=== PATIENT | male | born 1960 | race Caucasian/White ===

== ENCOUNTER → 2017-07-28 12:03 | Outpatient (CLI) | payer OTHER, SELFPAY ==
[2017-07-28 13:44] LABS: Hemoglobin A1c 5.2 % (4.2-6.3)
[2017-07-28 13:54] LABS: ALB/GLOB Ratio 0.9 RATIO (0.9-2.4); AST(SGOT) 10 U/L (15-37); Alanine Aminotransfer ALT/SGPT 22 U/L (16-61); Albumin, Serum 3.1 g/dL (3.2-5.0); Alkaline Phosphatase 84 U/L (45-117); Anion Gap 8 (5-15); BUN 63 mg/dL (7-18); BUN/Creat Ratio 21.6 RATIO (10-20); Calcium,Total 7.9 mg/dL (8.5-10.1); Chloride 106 mmol/L (98-107); Cholesterol 129 mg/dL (200); Creatinine, Serum 2.91 mg/dL (0.70-1.30); EST Glomerular Filtration Rate 24 mL/min (>60); Est Glom Filt Rate - Afr Amer 29 mL/min (>60); Globulin 3.5 g/dL (2.2-4.2); Glucose 145 mg/dL (74-106); High Density Lipoprotein 38 mg/dL; Potassium 4.6 mmol/L (3.5-5.1); Protein, Total 6.6 g/dL (6.4-8.2); Sodium Level 140 mmol/L (136-145); Triglycerides 142 mg/dL; Very Low Density Lipoprotein 28 mg/dL (5-40)
== END ==
PROVIDERS: Family Provider Family Medicine; PCP Family Medicine; Visit Provider Family Medicine
DX: E11.8 Type 2 diabetes mellitus with unspecified complications (principal); Z79.4 Long term (current) use of insulin
CPT/HCPCS: 36415; 80053; 80061; 82043; 82570; 83036

== ENCOUNTER → 2017-09-29 16:33 | Outpatient (CLI) | payer OTHER, SELFPAY ==
[2017-09-29 18:12] LABS: Amphetamine Urine VISTA NEGATIVE (<1000 ng/mL); Barbiturate Urine VISTA NEGATIVE (< 200 ng/mL); Benzodiazepine Urine VISTA NEGATIVE (< 200 ng/mL); Cocaine Urine VISTA NEGATIVE (< 300 ng/mL); Ecstacy Urine VISTA NEGATIVE (< 500 ng/mL); Methadone Urine VISTA NEGATIVE (< 300 ng/mL); PCP Urine VISTA NEGATIVE (< 25 ng/mL); THC Urine VISTA NEGATIVE (< 50 ng/mL); Vista UDS pH Range 6
== END ==
PROVIDERS: Family Provider Family Medicine; PCP Family Medicine; Visit Provider Anesthesiology Pain Medicine
DX: S00-T88 Injury, poisoning and certain other consequences of external causes (principal); T23.399A Burn of third degree of multiple sites of unspecified wrist and hand, initial encounter; T24.7 Corrosion of third degree of lower limb, except ankle and foot; T23.7 Corrosion of third degree of wrist and hand; S22.49XA Multiple fractures of ribs, unspecified side, initial encounter for closed fracture; S72.009A Fracture of unspecified part of neck of unspecified femur, initial encounter for closed fracture; T21.7 Corrosion of third degree of trunk; T25.39 Burn of third degree of multiple sites of ankle and foot; T25.7 Corrosion of third degree of ankle and foot; T31 Burns classified according to extent of body surface involved; S32.411A Displaced fracture of anterior wall of right acetabulum, initial encounter for closed fracture; S72.009 Fracture of unspecified part of neck of unspecified femur; T21.31XA Burn of third degree of chest wall, initial encounter; T21.33XA Burn of third degree of upper back, initial encounter; T21.39XA Burn of third degree of other site of trunk, initial encounter; T22.30XA Burn of third degree of shoulder and upper limb, except wrist and hand, unspecified site, initial encounter; S72.051A Unspecified fracture of head of right femur, initial encounter for closed fracture
CPT/HCPCS: 80307

== ENCOUNTER → 2017-10-28 15:07 | Outpatient (CLI) | payer OTHER, MEDICARE, SELFPAY ==
--- NOTE | 2017-10-28 15:13 | RAD_ITS ---
STUDY: X-RAY - LUMBAR SPINE REASON FOR EXAM: Male, 57 years old. Back pain TECHNIQUE: 3 view(s) of the lumbar spine were obtained. COMPARISON: None FINDINGS: Alignment is normal. No compression fracture. Anterior L3-4 osteophytes. Lower lumbar facet disease. Pelvic clips. Chronic dystrophic changes of the right hip. Aortic calcifications. RAD/Lumbar Spine 2 or 3 Views IMPRESSION: No compression deformity. Normal alignment. Lower lumbar facet disease. Electronically Signed: Pierre Garcia MD at 23:27 EDT Tel , Service support ,
== END ==
PROVIDERS: Family Provider Family Medicine; PCP Family Medicine; Visit Provider Anesthesiology Pain Medicine
DX: S22.49XA Multiple fractures of ribs, unspecified side, initial encounter for closed fracture (principal); T21.31XA Burn of third degree of chest wall, initial encounter; T21.7 Corrosion of third degree of trunk; T21.33XA Burn of third degree of upper back, initial encounter; T21.39XA Burn of third degree of other site of trunk, initial encounter; T22.30XA Burn of third degree of shoulder and upper limb, except wrist and hand, unspecified site, initial encounter; S00-T88 Injury, poisoning and certain other consequences of external causes; S32.411A Displaced fracture of anterior wall of right acetabulum, initial encounter for closed fracture; S72.051A Unspecified fracture of head of right femur, initial encounter for closed fracture; T23.399A Burn of third degree of multiple sites of unspecified wrist and hand, initial encounter; T23.7 Corrosion of third degree of wrist and hand; T31 Burns classified according to extent of body surface involved
CPT/HCPCS: 72100

== ENCOUNTER 2018-02-14 14:50 | Emergency (ER) | payer OTHER, MEDICARE, SELFPAY ==
[2018-02-14 14:52] VITALS: BP 132/80; PULSE 94; RESP 24; TEMP 36.9; O2SAT 97; BMI 32.1
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
[2018-02-14 15:44] LABS: Absolute Lymphocyte Count 0.64 X10^3/ul (0.83-4.51); Absolute Neutrophil Count 5.7 X10^3/uL (2.0-7.7); Basophil# 0.03 X10^3/uL; Basophil% 0.4 % (0-1); Eosinophil# 0.07 X10^3/uL; Hematocrit 30.3 % (40-54); Hemoglobin 9.3 g/dl (13.0-16.5); Lymphocyte # 0.64 X10^3/ul (4.0); Lymphocyte % 8.9 % (19-41); Mean Corp Hgb Conc 30.7 g/gl (32-36); Mean Corpuscular Hgb 27.5 pg (27.0-32.0); Mean Corpuscular Volume 89.6 fL (80-94); Mean Platelet Vol. 10.5 fl (6.2-12.0); Monocyte# 0.75 X10^3/uL; Monocyte% 10.4 % (0-10); Neutrophil % 79.2 % (47-70); POSITIVE COUNT NO; POSITIVE DIFFERENTIAL NO; POSITIVE MORPHOLOGY NO; Platelet Count 157 K/mm3 (150-450); RBC Distribution Width CV 15.6 % (11.6-14.6); RBC Distribution Width SD 50.3 fl (35.1-43.9); Red Blood Count 3.38 M/mm3 (4.6-6.2); White Blood Count 7.2 K/mm3 (4.4-11.0)
[2018-02-14] MEDS: Morphine 4 MG/ML Syringe IV (15:45)
[2018-02-14 16:00] LABS: BUN 70 mg/dL (7-18); Creatinine, Serum 2.84 mg/dL (0.70-1.30); EST Glomerular Filtration Rate 25 mL/min (>60); Estimated Creatinine Clearance 30.56 ml/min; Glucose 126 mg/dL (74-106)
[2018-02-14 16:00] LABS: Bacteria 0 SEEN /hpf (None Seen); Mucous, Urine 0 SEEN /hpf (<or=2+); Squamous Epithelial Cells - UA 0 SEEN /hpf (0-5); White Blood Cells 0 SEEN /hpf (0-5)
[2018-02-14 16:01] LABS: ALB/GLOB Ratio 0.8 RATIO (0.9-2.4); AST(SGOT) 12 U/L (15-37); Alanine Aminotransfer ALT/SGPT 15 U/L (16-61); Albumin, Serum 3.3 g/dL (3.2-5.0); Alkaline Phosphatase 127 U/L (45-117); Anion Gap 14 (5-15); BUN/Creat Ratio 24.6 RATIO (10-20); Calcium,Total 7.4 mg/dL (8.5-10.1); Chloride 106 mmol/L (98-107); Est Glom Filt Rate - Afr Amer 30 mL/min (>60); Globulin 4.1 g/dL (2.2-4.2); Protein, Total 7.4 g/dL (6.4-8.2); Sodium Level 141 mmol/L (136-145)
[2018-02-14 16:04] LABS: Color, Urine Yellow (Yellow); Glucose, Dipstick 100 mg/dl (Normal); Ketone-Dipstick Negative (Negative); Leukocyte Esterase-Dipstick Negative /ul (Negative); Nitrite-Dipstick Negative (Negative); Occult Blood-Urine 10 /ul (Negative); Protein-Dipstick 500 mg/dl (Negative); Urine Bilirubin Dipstick Negative (Negative); Urine Clarity Clear (Clear); Urine Urobilinogen Normal (Normal)
[2018-02-14 16:13] LABS: Fine Granular Cast- Urine 0-5 SEEN /lpf (0-5); Red Blood Cells-Urine 0-5 SEEN /hpf (0-5)
[2018-02-14 16:15] LABS: BNP,B-Type NATRIURETIC PEPTIDE 541.3 pg/mL (0-100)
[2018-02-14] MEDS: Ondansetron 4 MG/2 ML Vial IV (17:51)
[2018-02-14 18:02] VITALS: BP 129/81; O2SAT 93
--- NOTE | 2018-02-14 18:13 | ED.DEP ---
ED Disposition - Plan for ED Patient: Disposition: Home or Assisted Living Chief Complaint: Edema Instructions: ED Hydrocele Type Not Specified Referrals: Atul Cruz MD [Primary Care Provider] -
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
[2018-02-14] MEDS: Furosemide 40 MG/4 ML Vial IV (18:29)
== END 2018-02-14 18:38 | disposition home or self-care (01) ==
PROVIDERS: Emergency Provider Emergency Medicine; Family Provider Family Medicine; PCP Family Medicine
DX: N50.812 Left testicular pain (principal); N50.89 Other specified disorders of the male genital organs; R06.00 Dyspnea, unspecified; N43.3 Hydrocele, unspecified; I25.10 Atherosclerotic heart disease of native coronary artery without angina pectoris; E11.22 Type 2 diabetes mellitus with diabetic chronic kidney disease; I13.0 Hypertensive heart and chronic kidney disease with heart failure and stage 1 through stage 4 chronic kidney disease, or unspecified chronic kidney disease; N18.9 Chronic kidney disease, unspecified; I50.9 Heart failure, unspecified; E78.00 Pure hypercholesterolemia, unspecified; Z79.82 Long term (current) use of aspirin; Z79.4 Long term (current) use of insulin; Z79.899 Other long term (current) drug therapy
CPT/HCPCS: 71045; 76870; 80053; 81001; 83880; 84484; 85025; 93005; 93976; 96374; 96375; 99284; A4216; J1940; J2405

== ENCOUNTER 2018-02-15 18:49 | Observation (INO) | payer OTHER, MEDICARE, SELFPAY ==
[2018-02-15 18:52] VITALS: BP 141/83; PULSE 93; RESP 18; TEMP 37; O2SAT 98; BMI 31.1
[2018-02-15 22:03] VITALS: PULSE 97; RESP 14; O2SAT 97
--- NOTE | 2018-02-15 22:29 | EKG12_ITS ---
Test Reason : EDEMA Blood Pressure : / mmHG Vent. Rate : 099 BPM Atrial Rate : 099 BPM P-R Int : 160 ms QRS Dur : 094 ms QT Int : 378 ms P-R-T Axes : 023 -57 080 degrees QTc Int : 485 ms Normal sinus rhythm Left axis deviation , LAHB Anterior infarct , age undetermined Abnormal ECG Confirmed by ISAAC CORBETT ([id number]), supervising editor trailer FAVIAN VASQUEZ ([id number]) on 02/22/2018 2:03:56 PM Referred By: GERMAN Confirmed By:ISAAC CORBETT
[2018-02-15] MEDS: Ondansetron 4 MG/2 ML Vial IV (22:52)
[2018-02-15] MEDS: HYDROmorphone 1 MG/ML Syringe IV (22:52)
[2018-02-15 23:07] LABS: Absolute Lymphocyte Count 0.84 X10^3/ul (0.83-4.51); Absolute Neutrophil Count 5.3 X10^3/uL (2.0-7.7); Basophil# 0.04 X10^3/uL; Basophil% 0.6 % (0-1); Eosinophils% 1.4 % (0-5); Hematocrit 29.7 % (40-54); Hemoglobin 9.1 g/dl (13.0-16.5); Lymphocyte # 0.84 X10^3/ul (4.0); Lymphocyte % 11.8 % (19-41); Mean Corp Hgb Conc 30.6 g/gl (32-36); Mean Corpuscular Hgb 27.6 pg (27.0-32.0); Mean Platelet Vol. 10.1 fl (6.2-12.0); Monocyte# 0.81 X10^3/uL; Monocyte% 11.4 % (0-10); Neutrophil # 5.33 X10^3/uL (2.7-7.7); Neutrophil % 74.7 % (47-70); POSITIVE COUNT NO; POSITIVE DIFFERENTIAL NO; POSITIVE MORPHOLOGY NO; Platelet Count 149 K/mm3 (150-450); RBC Distribution Width CV 15.7 % (11.6-14.6); RBC Distribution Width SD 51.3 fl (35.1-43.9); White Blood Count 7.1 K/mm3 (4.4-11.0)
[2018-02-15 23:29] LABS: Anion Gap 13 (5-15); BUN 71 mg/dL (7-18); BUN/Creat Ratio 22.9 RATIO (10-20); Calcium,Total 7.6 mg/dL (8.5-10.1); Chloride 105 mmol/L (98-107); EST Glomerular Filtration Rate 22 mL/min (>60); Est Glom Filt Rate - Afr Amer 27 mL/min (>60); Estimated Creatinine Clearance 28.86 ml/min; Glucose 146 mg/dL (74-106); Potassium 3.9 mmol/L (3.5-5.1); Sodium Level 138 mmol/L (136-145)
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
[2018-02-16 01:08] VITALS: BP 155/65; PULSE 79; RESP 22; O2SAT 95
--- NOTE | 2018-02-16 01:12 | ED.RN ---
MED/SURG NOTIFIED PT WANTS TO REMAIN IN PERSONAL MOTORIZED WHEELCHAIR
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
--- NOTE | 2018-02-16 01:41 | ED.RN ---
DR BRISCOE REQUEST TO HAVE A BLANKET WRAPPED AROUND THE LEGS. PT DECLINES HAVING BLANKET WRAPPED AROUND HIS LEGS.
[2018-02-16 01:57] VITALS: BMI 31.1; BMI 31.2
[2018-02-16 02:25] VITALS: BP 130/79; PULSE 97; RESP 16; TEMP 36.6; O2SAT 98
[2018-02-16 03:21] LABS: Bedside Glucose 162 mg/dL (70-110)
[2018-02-16] MEDS: Furosemide 100 MG/10 ML Vial 80 MG IV (03:23)
[2018-02-16] MEDS: HYDROcodone Bitartrate/Apap 5/325 Tablet PO ×2 (03:23→14:00)
[2018-02-16] MEDS: Heparin Injection (Vial) 5,000 UNIT/ML VIAL 5000 UNIT SC (06:21)
[2018-02-16 06:22] VITALS: PULSE 92
[2018-02-16] MEDS: hydrALAZINE 25 MG Tablet PO (06:22)
[2018-02-16] MEDS: Isosorbide DN 10 MG Tablet PO (06:22)
[2018-02-16 07:19] LABS: Anion Gap 13 (5-15); BUN 71 mg/dL (7-18); BUN/Creat Ratio 23.4 RATIO (10-20); Calcium,Total 7.6 mg/dL (8.5-10.1); Chloride 107 mmol/L (98-107); Creatinine, Serum 3.03 mg/dL (0.70-1.30); EST Glomerular Filtration Rate 23 mL/min (>60); Est Glom Filt Rate - Afr Amer 28 mL/min (>60); Estimated Creatinine Clearance 29.52 ml/min; Glucose 187 mg/dL (74-106); Potassium 4.1 mmol/L (3.5-5.1); Sodium Level 139 mmol/L (136-145)
[2018-02-16] MEDS: Aspirin 81 MG TAB.CHEW PO (08:08)
[2018-02-16] MEDS: Insulin Lispro 100 UNIT/ML INSULN.PEN SQ ×2 (08:13→12:15)
[2018-02-16 08:26] VITALS: BP 139/76; PULSE 97; RESP 18; TEMP 36.6; O2SAT 96
--- NOTE | 2018-02-16 08:43 | NURSING ---
wound photo: left posteromedial lower leg
--- NOTE | 2018-02-16 08:44 | NURSING ---
wound photo: left posterolateral lower leg
--- NOTE | 2018-02-16 08:44 | NURSING ---
wound photo: right posteromedial lower leg
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
--- NOTE | 2018-02-16 09:47 | PCM.DC ---
- Discharge Diagnoses Current Active Problems: Current Active and Chronic Problems (Last Reviewed 02/16/18 @ 03:48 by Stephen Alonzo MD) Chronic pain (Chronic) Wheelchair bound (Chronic) Scrotal edema (Acute) You will use the following diet at home:: Calorie/Carbohydrate Controlled (specify 1200, 1400, etc) - 1800 kcal/day, Fluid restricted (specify 2000 mls, 1500 mls) - 1500 cc/day Your food should be the consistency of: Regular Your liquids should be the consistency of: Regular/Thin Discharge Activity: - - with assist Call your doctor if you observe: Fever of 101 or Higher, Shortness of breath Instructions: What Is Heart Failure?, Heart Failure: Making Changes to Your Diet, Discharge Instructions for Heart Failure Additional Instructions: elevate scrotum while in bed and chair as much as possible. Allergies/Adverse Reactions: Allergies codeine Adverse Reaction (Verified 02/14/18 14:52) Vomiting Medications to take at Discharge Trazodone HCl 150 mg PO QHS 03/27/16 Lorazepam [Ativan] 0.5 mg PO BID 08/21/16 Duloxetine Hcl [Cymbalta] 60 mg PO BID 01/21/17 Miconazole Nitrate [Lotrimin AF] 90 gm TP BID PRN PRN 01/21/17 Hydroxyzine Pamoate [Vistaril] 50 mg PO BID PRN PRN 02/11/17 Insulin Glargine [Lantus SoloStar Pen] 15 units SC BREAKFAST 02/11/17 Aspirin [Aspirin, Baby] 81 mg PO DAILY@0800 02/17/17 Furosemide [Lasix] 40 mg PO BID 02/17/17 Insulin Aspart [Novolog Flexpen] 0 units SC ACHS 02/17/17 Insulin Aspart [Novolog Flexpen] 10 units SC TIDCM 02/17/17 Isosorbide DN [Isordil] 10 mg PO TID 02/17/17 Metoprolol Tartrate [Lopressor (beta lane)] 25 mg PO BID 02/17/17 Pravastatin [Pravachol] 40 mg PO QHS 02/17/17 hydrALAZINE [Apresoline] 25 mg PO TID 02/17/17 Insulin Glargine [Lantus SoloStar Pen] 40 units SC QHS 02/16/18 [place] 5-325 Tablet 1 mg BID 02/16/18 Primary Care Physician: Atul Cruz MD [Primary Care Provider] - Within 1 Week Test Results: Test results from this visit will be discussed in further detail at your follow-up appointment, if applicable. Please Follow Up With: Lilian Turner DO - chronic kidney disease follow up. When: 1-2 months Please Follow Up With: [facility] When: 1-2 months Proposed Discharge Date: 02/16/18
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
[2018-02-16 10:22] VITALS: O2SAT 95
--- NOTE | 2018-02-16 10:50 | CASEMGMT ---
RN CM Face to Face with patient for initial transition planning/care coordination assessment. RN CM introduced self and role at [facility]. Patient sitting up in wheelchair, alert and oriented. Patient willing to participate in assessment and is able to answer all questions appropriately. Care providers, pharmacy, and demographics verified. Patient alone in 2 story home with first floor setup. Patient has raised toilet seat, hospital bed, cholo, elevator, grab bars, W/C. [place] has [facility] nursing 1hr/day 7days/week and private duty aides. Pt wishes to discharge home with resumption of HHC. Patient states he has no further needs or concerns at this time. CM to follow for discharge planning needs that may arise. Disposition Plan: Patient to discharge home with HHC, family support, and follow-up plans in place.
--- NOTE | 2018-02-16 11:02 | NURSING ---
Patient refused all 1000 medications except insulin that will be due with lunch. He states I already went over everything 100 times with you people. I'll take it when I get home. Patient denies other needs at this time, ordered patient's lunch, will check blood sugar closer to lunch and give insulin per orders.
[2018-02-16 11:41] LABS: Bedside Glucose 173 mg/dL (70-110)
[2018-02-16 11:46] LABS: Bedside Glucose 169 mg/dL (70-110)
[2018-02-16] MEDS: Insulin Lispro 100 UNIT/ML INSULN.PEN 10 UNIT SC (12:15)
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
== END 2018-02-16 14:15 | disposition home health service (06) ==
LOC: ED 21:16 → MS3 02-16 01:38
PROVIDERS: Admitting Provider Hospitalist; Emergency Provider Emergency Medicine; Family Provider Family Medicine; PCP Family Medicine
DX: N50.89 Other specified disorders of the male genital organs (principal); Z99.3 Dependence on wheelchair; E78.5 Hyperlipidemia, unspecified; E11.22 Type 2 diabetes mellitus with diabetic chronic kidney disease; I25.10 Atherosclerotic heart disease of native coronary artery without angina pectoris; K21.9 Gastro-esophageal reflux disease without esophagitis; Z79.899 Other long term (current) drug therapy; Z79.4 Long term (current) use of insulin; Z79.82 Long term (current) use of aspirin; E11.40 Type 2 diabetes mellitus with diabetic neuropathy, unspecified; F43.12 Post-traumatic stress disorder, chronic; F32.9 Major depressive disorder, single episode, unspecified; G82.20 Paraplegia, unspecified; H54.40 Blindness, one eye, unspecified eye; N18.4 Chronic kidney disease, stage 4 (severe); I13.0 Hypertensive heart and chronic kidney disease with heart failure and stage 1 through stage 4 chronic kidney disease, or unspecified chronic kidney disease; G89.29 Other chronic pain; Z87.891 Personal history of nicotine dependence; I50.22 Chronic systolic (congestive) heart failure
CPT/HCPCS: 36415; 71045; 80048; 82962; 85025; 93005; 96372; 96374; 96375; 96376; 99218; 99284; A4216; G0378; J1940; J2405

== ENCOUNTER 2018-02-26 22:48 | Emergency (ER) | payer OTHER, MEDICARE, SELFPAY ==
[2018-02-26 22:50] VITALS: BP 133/79; PULSE 94; RESP 15; TEMP 36.5; BMI 31.1
[2018-02-27] MEDS: morphine 8 MG/ML Syringe SC (00:24)
[2018-02-27 01:08] LABS: Bacteria 0 SEEN /hpf (None Seen); Squamous Epithelial Cells - UA 0 SEEN /hpf (0-5); White Blood Cells 0 SEEN /hpf (0-5)
[2018-02-27 01:12] LABS: Color, Urine Yellow (Yellow); Glucose, Dipstick Normal (Normal); Ketone-Dipstick Negative (Negative); Leukocyte Esterase-Dipstick Negative /ul (Negative); Nitrite-Dipstick Negative (Negative); Occult Blood-Urine 10 /ul (Negative); Protein-Dipstick 500 mg/dl (Negative); Urine Bilirubin Dipstick Negative (Negative); Urine Clarity Sl. Cloudy (Clear); Urine Urobilinogen 1 mg/dl (Normal)
[2018-02-27 01:19] LABS: Amorphous Sediment 1+; Hyaline Cast 0-5 SEEN /lpf (0-5); Mucous, Urine 1+ /hpf (<or=2+); Red Blood Cells-Urine 0-5 SEEN /hpf (0-5)
[2018-02-27 01:46] VITALS: BP 121/76; PULSE 76; RESP 18; O2SAT 94
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
[2018-02-27] MEDS: HYDROcodone Bitartrate/Apap 5/325 Tablet PO ×2 (02:41→10:27)
[2018-02-27 03:00] VITALS: RESP 18
[2018-02-27] MEDS: Ondansetron ODT 4 MG Tablet PO ×2 (05:08→10:54)
[2018-02-27 06:00] VITALS: BP 106/68; PULSE 84; RESP 18; O2SAT 94
--- NOTE | 2018-02-27 07:52 | NURSING ---
ATTEMPTED TO CALL [facility] FOR TRANSPORT HOME; MESSAGES LEFT FOR BOTH. [facility] CALLED FOR TRANSPORT AND 1030 AM ETA GIVEN. NO OTHER AGENCY AVAILABLE.
[2018-02-27 11:04] VITALS: BP 132/72; PULSE 86; RESP 16; O2SAT 95
== END 2018-02-27 11:07 | disposition home or self-care (01) ==
PROVIDERS: Emergency Provider Emergency Medicine; Family Provider Family Medicine; PCP Family Medicine
DX: N50.89 Other specified disorders of the male genital organs (principal); N43.3 Hydrocele, unspecified; K21.9 Gastro-esophageal reflux disease without esophagitis; E11.9 Type 2 diabetes mellitus without complications; I10 Essential (primary) hypertension; E78.00 Pure hypercholesterolemia, unspecified; G82.20 Paraplegia, unspecified; Z79.82 Long term (current) use of aspirin; Z79.4 Long term (current) use of insulin; Z79.899 Other long term (current) drug therapy
CPT/HCPCS: 81001; 87086; 96372; 99283

== ENCOUNTER 2018-08-11 13:45 | Outpatient (RCR) | payer MEDICARE, SELFPAY ==
[2018-07-28 14:58] VITALS: BP 130/78; PULSE 90; RESP 18; TEMP 37.2; BMI 28.3
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
[2018-07-29 11:55] VITALS: BMI 28.3
[2018-08-11 13:49] VITALS: BP 138/84; PULSE 97; RESP 16; TEMP 37.3; BMI 28.3
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
== END 2018-08-11 23:59 ==
LOC: WC 13:45
PROVIDERS: Family Provider Family Medicine; PCP Family Medicine; Visit Provider Nurse Practitioner Family
DX: S81.812A Laceration without foreign body, left lower leg, initial encounter (principal); S81.811A Laceration without foreign body, right lower leg, initial encounter; X58.XXXA Exposure to other specified factors, initial encounter; R53.2 Functional quadriplegia; I25.10 Atherosclerotic heart disease of native coronary artery without angina pectoris; N18.3 Chronic kidney disease, stage 3 (moderate); I50.9 Heart failure, unspecified; E11.22 Type 2 diabetes mellitus with diabetic chronic kidney disease; K21.9 Gastro-esophageal reflux disease without esophagitis; I13.0 Hypertensive heart and chronic kidney disease with heart failure and stage 1 through stage 4 chronic kidney disease, or unspecified chronic kidney disease; Z99.3 Dependence on wheelchair; L85.3 Xerosis cutis; T50.905A Adverse effect of unspecified drugs, medicaments and biological substances, initial encounter; L29.8 Other pruritus; Z95.5 Presence of coronary angioplasty implant and graft; F11.20 Opioid dependence, uncomplicated; E11.40 Type 2 diabetes mellitus with diabetic neuropathy, unspecified
CPT/HCPCS: 11042; 11045; 29580; 99214; G0463

== ENCOUNTER 2018-08-25 09:31 | Outpatient (RCR) | payer MEDICARE, SELFPAY ==
[2018-08-12 01:44] VITALS: BP 138/84; PULSE 97; RESP 16; TEMP 37.3
== END 2018-09-11 23:59 ==
LOC: WC 09:31
PROVIDERS: Family Provider Family Medicine; PCP Family Medicine; Visit Provider Nurse Practitioner Family
DX: Z09 Encounter for follow-up examination after completed treatment for conditions other than malignant neoplasm (principal)